=== PATIENT | male | born 1945 | race Caucasian/White ===

== ENCOUNTER 2016-08-27 11:43 | Inpatient (IN) | payer OTHER, MEDICARE ==
[~2016-08-27] VITALS: Ht 177.8 cm; Wt 80.0 kg
[2016-08-27] VITALS (8 sets, daily range): BP systolic 141–215; BP diastolic 79–111
--- NOTE | ~2016-08-27 | HC ---
[facility] [place] [place] [address] CONSULTATION Name: AMY LAWRENCE Room #: 201-P [facility] IN ..#: [id number] Admission: 08/27/16 Attend Phys: Estrada Gabriel MD Discharge: 09/05/16 Date of : 47 Report #: [id number] THIS REPORT FOR: //name// CC: Estrada Gabriel DATE OF SERVICE: 08/28/2016 PERSONAL PHYSICIAN: Estrada Gabriel MD CHIEF COMPLAINT: Left lateral ankle wound and altered mental status. HISTORY OF PRESENT ILLNESS: This is a 70-year-old white male who I have been following for several months for an ulceration on his left lateral ankle and subsequently developed osteomyelitis requiring partial fibular head removal or resection. The patient has been recently at a skilled facility with a wound VAC. We have been following the patient closely and the patient was doing well; however, over the past several days, he has developed confusion to the point of where he was brought to the Emergency Department yesterday and was admitted for further evaluation of the confusion. When I saw the patient today, the patient does not even recognize who I am and is ____ in the bed, but did not appear to be in any pain. The nurses have no major concerns about the wound at this time. DRUG ALLERGIES: LATEX, PENICILLIN, AND LEVOFLOXACIN. CURRENT MEDICATIONS: Multiple, I reviewed the patient's medication list. SOCIAL HISTORY: The patient resides at home independently prior to his recent hospitalization. Does not smoke or drink alcohol. FAMILY HISTORY: Not pertinent to current medical condition. REVIEW OF SYSTEMS: Unobtainable because of the patient's altered mental status. PHYSICAL EXAMINATION: VITAL SIGNS: The patient is afebrile. Vital signs are otherwise within normal limits. GENERAL: This is awake, but not alert or oriented white male who appears agitated and confused. HEENT: Normocephalic, atraumatic. Pupils are round. Sclerae are white. Mucous membranes are exquisitely dry. NECK: Supple, without rigidity or lymphadenopathy. There is no JVD. BACK: Nontender. LUNGS: Slightly diminished breath sounds heard throughout, but no rhonchi. CHEST: Nontender. HEART: Regular, without murmur. ABDOMEN: Soft, otherwise nontender, without organomegaly. [address] [address] CONSULTATION Name: AMY LAWRENCE Room #: 201-P [facility] IN .R.#: [id number] Admission: 08/27/16 Attend Phys: Estrada Gabriel MD Discharge: 09/05/16 Date of : 47 Report #: [id number] EXTREMITIES: The patient moves all extremities spontaneously. There is no edema in the lower extremities. Distal pulses are intact. Evaluation of left lateral ankle wound reveals a wound which is fairly clean and granulating. There is still a very small amount of posterior tibial tendon exposed. Drainage is serosanguineous. Periwound itself is otherwise intact without signs of erythema, warmth, or cellulitis. Bilateral heels are intact. NEUROLOGIC: The patient is agitated and confused which is not his normal mentation. LABORATORY DATA: White count 10.4, hemoglobin 11.9, BUN 27, creatinine 1.4. WOUND CARE COURSE: The patient while here we will hold off on placing the wound VAC, I am afraid the patient will just pull the VAC off with his confusion and agitated state. We will use Maxorb AG over the wound bed, cover this with an Optifoam and change this every 2 days. I will check a prealbumin and check the patient's underlying nutritional status to make sure we maximize his protein supplementation for healing. Medicine team is working on and found out etiology of his confusion. I appreciate the ability to consult. We will continue to follow. <ELECTRONICALLY SIGNED> By: Noble Ambriz MD 09/12/16 0826 1239 1929 Noble Ambriz MD /nt
--- NOTE | ~2016-08-27 | EKG ---
[address] [place] [address] ELECTROCARDIOGRAM REPORT Name: AMY LAWRENCE Room #: 201-P ADM IN M.R.#: [id number] Admission: 08/27/16 Attend Phys: Estrada Gabriel MD Discharge: Date of : 46 Report #: [id number] THIS REPORT FOR: //name// [facility] Test Date: 2016-08-28 Test Time: 20:33:33 Pat Name: AMY LAWRENCE Department: Room: 201 P Gender: M Scout Executive: Trish ALMEIDA : 1945 Requested By: Michaela Pedroza Order Number: [id number] MD: Peng Brown Measurements Intervals [place] Rate: 110 P: 41 AR: 146 QRS: -38 QRSD: 84 T: 2 QT: 345 QTc: 467 Interpretive Statements Sinus tachycardia Atrial premature complexes Possible inferior infarct, old Probable anteroseptal infarct, old Nonspecific ST and T wave abnormality No previous ECGs available for comparison Electronically Signed On 08-29-2016 7:54:59 VASCULAR NURSE by Peng Brown [email or web address] <ELECTRONICALLY SIGNED> By: Peng Brown MD, [facility] 08/29/16 0754 32 32 Peng Brown MD, [facility] /EPI
--- NOTE | ~2016-08-27 | HC ---
[facility] [address] [place] [address] CONSULTATION Name: AMY LAWRENCE Room #: 201-P [facility] IN ..#: [id number] Admission: 08/27/16 Attend Phys: Estrada Gabriel MD Discharge: 09/05/16 Date of : 46 Report #: [id number] THIS REPORT FOR: //name// CC: Estrada Gabriel DATE OF SERVICE: 09/05/2016 HISTORY OF PRESENT ILLNESS: The patient is a 70-year-old white male who was admitted with mental status changes. He has a history of osteomyelitis of the left fibula, status post recent partial resection. He had had placement of a wound VAC. He was seen by neurology, diagnosed with an encephalopathy, likely multifactorial. He was noted to have urinary tract infection with urosepsis, acute renal insufficiency. He also has kidney stones with hydronephrosis and diabetes mellitus. He has been treated for the osteomyelitis and has wound care involved and has been receiving IV antibiotics. His acute renal insufficiency has improved and his overall encephalopathy is improving. He still has functional mobility, ADL and cognitive deficits and we are seeing him in rehabilitation medicine consultation. There was concern regarding possible aspiration, although a swallowing study recommends mechanical soft with thin liquids. He is noted to have mild oropharyngeal dysphagia. PAST MEDICAL HISTORY: Includes diabetes mellitus, prior amputation of the right great toe more than 1 year ago, underlying hypertension, hyperlipidemia, depression. MEDICATIONS: Please see the full medication listing. SOCIAL HISTORY: , lives independently with a friend. He is a nonsmoker, nondrinker, no recreational drugs. He does have grandchildren that he is involved with. REVIEW OF SYSTEMS: No current complaints of chest pain, shortness of breath or abdominal discomfort. Some discomfort of the left leg is expected. No other focal extremity pain complaints. ALLERGIES: PENICILLIN and LATEX. FAMILY HISTORY: Noncontributory. PHYSICAL EXAMINATION: He is a 70-year-old white male in no obvious distress. Last recorded temperature 97.6, pulse 102, respirations 20, blood pressure 169/89. The patient is alert, pleasant. HEENT appeared to be benign. Cranial nerves grossly intact. There is some latency to his responses. He has a tendency to defer some answers to his roommate. Somewhat concrete with his answers. EOMs appeared full. Facies are symmetric. Functional range of motion of both upper extremities with strength graded 3+ to 4-/5. DTRs are 1. His [facility] [address] [place] [address] CONSULTATION Name: AMY LAWRENCE Jaskaran Room #: 201-P [facility] IN ..#: [id number] Admission: 08/27/16 Attend Phys: Estrada Gabriel MD Discharge: 09/05/16 Date of : 46 Report #: [id number] lower extremities, no focal calf swelling. His left lateral ankle is dressed. He appears to have weakness of that left ankle and eversion and some weakness in dorsiflexion. Eversion would be only a grade 3, dorsiflexion is probably 3+. Proximal strength is more of a grade 4-, right lower extremity strength is a 4- to 4. He is min assist with sit to stand and ambulated 46 feet min assist with a front-wheeled walker. ASSESSMENT: A 70-year-old white male with the following problem list: 1. Multifactorial encephalopathy. 2. Osteomyelitis, left fibula, continuing antibiotics. 3. Kidney stones with ureteral stone and hydronephrosis. 4. Acute renal insufficiency that has improved. 5. Diabetes mellitus. 6. Clinical evidence for diabetic neuropathy. 7. History of chronic spinal stenosis. 8. Hypertension. 9. Depression. 10. Hyperlipidemia. 11. Coronary artery disease. PLAN: The patient should be a good candidate for an acute in-hospital inpatient rehabilitation stay. From a preadmission screening perspective: 1. Prior level of function is well delineated above. 2. Expect level of improvement would be for him to become modified independent with transfers and mobility issues with a walker as well as modified independent with ADLs and improvement in cognition. 3. Evaluation of the patient's risk for clinical complications. He does have multiple medical comorbidities as noted above. 4. Condition that caused the need for rehabilitation would be the multifactorial encephalopathy. He also has diabetic peripheral neuropathy. He does have decreased distal sensation in a stalking distribution of his lower extremities that I neglected to mention in my examination above. 5. Treatments needed would include PT, OT and speech 1 hour per day each 5 days a week throughout the duration of acute inpatient rehabilitation stay. 6. Anticipated discharge destination would be back to the home setting. 7. Would anticipate home healthcare therapies. 8. The patient meets diagnostic criteria for an acute in-hospital inpatient rehabilitation stay. He meets medical necessity criteria with the multiple medical comorbidities noted above. The multiple reimbursement consultant physicians would follow with him while on the rehab liriano. He has the tolerance for an acute rehab stay and has appropriate discharge goals back to the home setting. [facility] [address] [place] [address] CONSULTATION Name: AMY LAWRENCE Room #: 201-P DIS IN M.R.#: [id number] Admission: 08/27/16 Attend Phys: Estrada Gabriel MD Discharge: 09/05/16 Date of : 46 Report #: [id number] ADDENDUM: We will ask the rn rehab staff to double check regarding his acute hospital days. <ELECTRONICALLY SIGNED> By: Edson Nolan MD 09/09/16 1623 1109 1149 Edson Nolan MD /nt
--- NOTE | ~2016-08-27 | H ---
[facility] [address] [place] [address] HISTORY AND PHYSICAL Name: AMY LAWRENCE Room #: 201-P [facility] IN M.R.#: [id number] Admission: 08/27/16 Attend Phys: Estrada Gabriel MD Discharge: 09/05/16 Date of : 46 Report #: [id number] THIS REPORT FOR: //name// CC: Estrada Gabriel DATE OF SERVICE: 08/27/2016 CHIEF COMPLAINT: Mental status changes. HISTORY OF PRESENT ILLNESS: The patient is a 70-year-old male who has been residing at [facility] after an acute care in a long-term care stay for wound of left ankle with osteomyelitis. He apparently had altered mental status starting yesterday and then fell last night and he has been more difficult to arouse in the past 24 hours. His community educator states that he has not been eating or drinking very well either. PAST MEDICAL HISTORY: Significant for: 1. Recent osteomyelitis of the left fibula, status post partial resection and wound debridement. He had a wound VAC placed just yesterday. 2. Insulin-dependent diabetes mellitus. 3. Osteoporosis. 4. Gout. 5. Recent pneumonia. 6. Depression. 7. Hypertension. 8. Chronic spinal stenosis. 9. Hyperlipidemia. 10. coronary artery disease. MEDICATIONS: Include fenofibrate 160 mg a day, Plavix 75 mg a day, gabapentin 300 mg at bedtime, allopurinol 300 mg at bedtime, glimepiride 4 mg a day, amlodipine 5 mg a day, metformin 1000 mg b.i.d., oxycodone 20 mg p.r.n., Naprosyn b.i.d., Levemir 30 units at bedtime, Flexeril 10 mg p.r.n., metoprolol 25 mg b.i.d., fentanyl patch 100 mcg q.72 hours, Janumet XR 100/1000 daily, sertraline 100 mg a day and aspirin 81 mg a day. ALLERGIES: LATEX, PENICILLIN and LEVAQUIN. SOCIAL HISTORY: No smoking and no drinking. He is . REVIEW OF SYSTEMS: Unable to obtain due to his sedated state. PHYSICAL EXAMINATION: VITAL SIGNS: Blood pressure is 171/108, pulse was 88, respiratory rate 16, he is afebrile and O2 sats 93% on room air. GENERAL: The patient is nonresponsive, although I can arouse him very [facility] [address] [place] [address] HISTORY AND PHYSICAL Name: HOWARDAMY Room #: 201-P [facility] IN M.R.#: [id number] Admission: 08/27/16 Attend Phys: Estrada Gabriel MD Discharge: 09/05/16 Date of : 46 Report #: [id number] minimally. HEENT: Mucous membranes are dry. NECK: Supple. CHEST: Clear to auscultation. CARDIOVASCULAR: Regular rhythm without murmur. ABDOMEN: Soft and nontender. Bowel sounds are active. EXTREMITIES: The left ankle shows a 3 cm well edged wound that has no drainage. It is healing nicely. Pulses are intact. DIAGNOSTIC AND LABORATORY DATA: EKG shows sinus rhythm, rate of [address] segment changes. Sodium 139, potassium 4.0, chloride 104, bicarbonate 32, BUN 30, creatinine 1.5 and glucose 197. WBC 10.8, hemoglobin 12.4, hematocrit 37.8, platelet count 328, segs 63 and lymphs 21. Urinalysis shows specific gravity of 1.025, protein 3+, ketones 1+, blood 3+, 3-10 reds, 0-5 whites and moderate bacteria. Urine culture was done. Blood cultures done. CT head showed no intracranial process. Chest x-ray shows some atelectasis. CT scan of abdomen shows bilateral renal stones with a 4 mm proximal stone on the right, no hydronephrosis. ASSESSMENT: 1. Altered mental status, most likely medication related with the addition of infection. 2. Urinary tract infection with urosepsis. 3. Urinary stone. 4. Diabetes mellitus. 5. Wound with osteomyelitis of left ankle. PLAN: 1. We will admit, consult Infectious Disease for antibiotics. Get urine culture, consult Urology. We will hold his narcotics until he becomes more arousable. We will resume his diabetic meds otherwise except for the metformin in light of his elevated creatinine. 2. Acute kidney injury most likely due to dehydration. We will hydrate. <ELECTRONICALLY SIGNED> By: Estrada Gabriel MD 09/08/16 1250 1503 1541 Estrada Gabriel MD /nt
--- NOTE | ~2016-08-27 | EEG ---
[facility] [address] [place] [address] ELECTROENCEPHALOGRAM Name: AMY LAWRENCE Room #: 201-P [facility] IN M.R.#: [id number] Admission: 08/27/16 Attend Phys: Estrada Gabriel MD Discharge: 09/05/16 Date of : 47 Report #: [id number] THIS REPORT FOR: //name// CC: Estrada Gabriel DATE OF SERVICE: 08/30/2016 REASON FOR EVALUATION: This patient is being evaluated for altered mental status. TECHNIQUE: EEG was done by placing the electrodes by standard 10-20 system of electrode placement. Both referential and sequential montages were used for recording. Background activity in this patient's EEG is about 7-8 Hz and 30-40 microvolts. This background activity is intermixed with theta range slowing on both sides. The patient went to sleep that is associated with bilaterally symmetrical sleep spindle and vertex sharp waves. However, even when the patient is awake, the slowing is present on both sides. Throughout the record, no active epileptiform activity was noticed. IMPRESSION: This patient's electroencephalogram is intermixed with theta range slowing on both sides. That is a nonspecific abnormality, which can occur with dementia, encephalopathy, effect of psychotropic medication, etc. Clinical correlation is recommended. Thank you very much for this referral. <ELECTRONICALLY SIGNED> By: Vinny Douglas MD 09/05/16 1843 1317 11 MD michelle Poon
--- NOTE | ~2016-08-27 | EKG ---
[facility] [place] [address] ELECTROCARDIOGRAM REPORT Name: AMY LAWRENCE [id number] Admission: 08/27/16 Attend Phys: Discharge: Date of : 47 Report #: [id number] THIS REPORT FOR: //name// [facility] ED Test Date: 2016-08-27 Test Time: 12:27:16 Pat Name: AMY LAWRENCE Department: Room: Gender: Clinical Genetics Laboratory Chief: NEERAJ : 1945 Requested By: Charleen Malin Order Number: [id number] MD: Peng Brown Measurements Intervals [place] Rate: 82 P: 19 OK: 148 QRS: -34 QRSD: 84 T: 13 QT: 422 QTc: 493 Interpretive Statements Sinus rhythm Left axis deviation Poor R-wave progression Baseline wander in lead(s) V6 No previous ECG available for comparison Electronically Signed On 08-27-2016 13:29:57 [facility] by Peng Brown [email or web address] <ELECTRONICALLY SIGNED> By: Peng Brown MD, [facility] 08/27/16 1329 1227 1227 Peng Brown MD, [facility] /EPI
--- NOTE | ~2016-08-27 | HC ---
[facility] [address] [place] [address] CONSULTATION Name: AMY LAWRENCE Room #: 201-P [facility] IN ..#: [id number] Admission: 08/27/16 Attend Phys: Estrada Gabriel MD Discharge: 09/05/16 Date of : 47 Report #: [id number] THIS REPORT FOR: //name// CC: Estrada Gabriel DATE OF SERVICE: 08/31/2016 REASON FOR CONSULTATION: Elevating creatinine. HISTORY OF PRESENT ILLNESS: This very ill and unfortunate patient has diabetes, had a very severe left ankle diabetic foot infection with osteomyelitis of the fibula, and was under treatment for that in June-July of last year. He then was in a rehab LTAC facility, developed worsening mental status after five weeks of cefepime, came here 4 days ago and was admitted. His creatinine was 1.9 from a baseline a little bit lower than that, went down and now is up to 2.4. He has importantly been n.p.o. and not been able to take anything in by mouth. He has had very high blood sugars with likely glycosuria. He did have a CT scan, which showed reasonably normal looking kidneys without hydronephrosis. He did have a ureteral stone, which apparently passed. He does have a couple of kidney stones but no hydronephrosis. PAST MEDICAL HISTORY: He has longstanding diabetes, poorly controlled, and he has not taken good care of himself. He also has had a history of hypertension. He has had amputation of the right great toe last year and has had depression as well. ALLERGIES: Reportedly PENICILLIN and LATEX. SOCIAL HISTORY: He is , lives by himself, currently no use of recreational drugs, cigarettes or alcohol. REVIEW OF SYSTEMS: Difficult to take as his mental status is rather flat and diminished. GENERAL: He does present a poor appearance. EYES: Eyes sight seems to be okay. EARS, NOSE AND THROAT: Hearing okay, but apparently has some trouble with swallowing. No mouth ulcers. ENDOCRINE: Positive for the diabetes. RESPIRATORY: Currently not short winded. CARDIAC: No chest pain, angina or arrhythmias. GASTROINTESTINAL: He is n.p.o. due to aspirin risk. GENITOURINARY: He has a Cardoza catheter in place. NEUROLOGIC: Extremely diffusely weak. Mental status is rather limited. PHYSICAL EXAMINATION: GENERAL: This is an ill-appearing gentleman, mumbles softly, unclear as to how [facility] [address] [place] [address] CONSULTATION Name: AMY LAWRENCE Room #: 201-P DIS IN M.R.#: [id number] Admission: 08/27/16 Attend Phys: Estrada Gabriel MD Discharge: 09/05/16 Date of : 47 Report #: [id number] oriented he really is. SKIN: Shows poor turgor. SKELETAL: Well developed and well nourished, but somewhat emaciated. HEENT: Extraocular movements appear to be full. No scleral icterus. Hearing and vision appear to be intact. Mucous membranes are dry. NECK: The neck veins are flat. CHEST: Clear. HEART: Regular. . ABDOMEN: Soft. EXTREMITIES: There is no edema. Dressing over the left ankle. LABORATORY DATA: Hemoglobin 11.9, sodium 148, potassium 3.3, chloride 109, bicarbonate 18, creatinine 2.4 and BUN 51. ASSESSMENT AND PLAN: 1. Increased creatinine. He may have some underlying chronic kidney disease. He appears to have some proteinuria, but now he is getting worse. I believe he is volume depleted. He has had poor intake. He does have high sugar. We will try some half normal. We may have to add some bicarbonate to the mix as well, as his bicarbonate was down to 18. He does have a catheter, so apparently bladder function is not going to be an issue here. 2. Nephrolithiasis. 3. Left ankle wound. 4. Decreased mental status. 5. Diabetes mellitus with apparent nephropathy. 6. Hypertension. I will add some clonidine. <ELECTRONICALLY SIGNED> By: Bruce Aguilar MD 09/11/16 1127 1134 1728 Bruce Aguilar MD /nt
--- NOTE | ~2016-08-27 | HC ---
[facility] [address] [place] [address] CONSULTATION Name: AMY LAWRENCE Room #: 201-P [facility] IN ..#: [id number] Admission: 08/27/16 Attend Phys: Estrada Gabriel MD Discharge: Date of : 47 Report #: [id number] THIS REPORT FOR: //name// CC: Sung Gabriel HISTORY OF PRESENT ILLNESS: The patient is a 70-year-old male who I have been asked to see for heme positive dark stool, who presented with increasing mental confusion which began approximately 7-10 days ago. He has had recent medical history complicated by osteomyelitis and surgery, status post left fibula, partial resection and wound debridement as well as a wound VAC. He has had a history of increasing delirium and altered mental status and increased somnolence. HOME MEDICATIONS: Include fenofibrate, Plavix, gabapentin, allopurinol, glimepiride, amlodipine, metformin, oxycodone, Naprosyn, Levemir, Flexeril, metoprolol, fentanyl patch, Janumet, sertraline and aspirin. ALLERGIES: LATEX, PENICILLIN and LEVAQUIN. SOCIAL HISTORY: He is and has a roommate who I just talked with today. REVIEW OF SYSTEMS: Not possible secondary to the patient's mental status. PAST MEDICAL HISTORY: Otherwise notable for insulin-dependent diabetes, osteoporosis, gout, pneumonia, depression, hypertension, spinal stenosis, hyperlipidemia and coronary artery disease. PHYSICAL EXAMINATION: MENTAL STATUS: The patient is unable to give any history and is disoriented. GENERAL: The patient is afebrile. VITAL SIGNS: Stable. HEENT: Nonicteric. NECK: No JVD, thyromegaly or bruits. CARDIOVASCULAR: Not performed. PULMONARY: Not performed. ABDOMEN: Soft, nondistended and nontender. No stigmata of chronic liver disease. No abnormal masses or bruits. EXTREMITIES: No clubbing, cyanosis or edema. NEUROLOGIC: Not performed. LABORATORY DATA: Pertinent labs include hemoglobin 12.4, platelet count 328 and white count 10.8. His repeat hemoglobin is 11.9. Serum chemistry notable for a sodium of 150, potassium 3.5, chloride 110, venous bicarbonate 16, BUN 43 and creatinine 2.3. His liver tests are normal. ASSESSMENT: In summary, the patient has suspected heme positive stool and mild [facility] [address] [place] [address] CONSULTATION Name: AMY LAWRENCE Jaskaran Room #: 201-P [facility] M.R.#: [id number] Admission: 08/27/16 Attend Phys: Estrada Gabriel MD Discharge: Date of : 47 Report #: [id number] anemia. He has no significant abnormality on physical examination. He does not have a history of significant alcohol consumption or abuse. He has been on significant pain medications and may be experiencing withdrawal in some regard from these. Mental status workup is also being entertained currently and is likely multifactorial. I see no evidence of acute gastrointestinal hemorrhage, but we will follow with him. He has had an EGD and a colonoscopy in the last couple of years by Dr. Gramajo. The results of these are not available to me. Thank you again for allowing us to participate in the care of this nice man. Sincerely, <ELECTRONICALLY SIGNED> By: Zheng Sanders MD 09/01/16 1539 [id number] [id number] Giorgio Thibodeaux MD /nt
[~2016-08-27 11:43] MED LIST: ALLOPURINOL 30300 M1 PO; ALTACE10 M1 PO; ALTACE10 MG PO; AMARYL4 MG PO; ASPIR 8181 MG PO; AVANDIA8 MG PO; COMPAZINE10 MG PO; FENOFIBRATE160 MG PO; FENTANYL 1100 MCG/HR TRANSDERM; FLEXERIL PO; GLUCOPHAGE PO; GLUCOPHAGE XR500 MG PO; JANUMET XR 1001 EACH PO; LACTULOSE10 GM/15 M PO; LEVAQUIN 500 M500 M2 PO; LEVEMIR100 UNIT/1 SUBQ; LEVOFLOXAC750 MG/150 IV; LEVSIN; LOPRESSOR PO; LOPRESSOR25 PO; METFORMIN HCL500 MG PO; NAPROSYN250 MG PO; NAPROSYN500 MG PO; NORVASC 5 MG TAB5 MG PO; NORVASC5 MG PO; NOVOLOG100 UNIT/1 SUBQ; OXYCODONE HCL20 M1 PO; PERCOCET 5-3251 EACH PO; PLAVIX 75 MG TA75 M1 PO; VICODIN; ZOLOFT50 MG PO
[2016-08-27] MEDS ORDERED: NEURONTIN 300300 M1 PO (12:07)
[2016-08-27 12:11] LABS: ABSOLUTE NEUTROPHILS 6.8 thou/uL (1.4-8.2); BASOPHILS 0.5 % (0.0-2.0); EOSINOPHILS 6.4 % (0.0-3.0); HEMATOCRIT 37.8 % (42.0-52.0); HEMOGLOBIN 12.4 gm/dL (14.0-18.0); LYMPHOCYTES 20.9 % (24.0-44.0); MCH 25.4 pg (26.0-34.0); MCHC 32.9 % (28.0-37.0); MCV 77.1 fL (80.0-100.0); MONOCYTES 8.9 % (1.0-8.0); PLATELET COUNT 328 thou/uL (150-400); POLYS 63.3 % (36.0-66.0); RDW 16.5 % (10.5-14.5); WBC 10.8 thou/uL (4.0-11.0)
[2016-08-27 12:13] LABS: MANUAL DIFF NO
[2016-08-27 12:18] LABS: CALCIUM 9.1 mg/dL (8.5-10.1); CREATININE 1.5 mg/dL (0.6-1.3)
[2016-08-27 13:25] LABS: URINE BILIRUBIN NEGATIVE (Negative); URINE BLOOD 3+ (Negative); URINE COLOR YELLOW; URINE GLUCOSE-RANDOM* 2+ (Negative); URINE KETONES 1+ (Negative); URINE LEUKOCYTES-REFLEX NEGATIVE (Negative); URINE PROTEIN (DIPSTICK) 3+ (Negative); URINE SPECIFIC GRAVITY 1.025 (1.003-1.035); URINE UROBILINOGEN 0.2 E.U./dl (0.2-1.0)
[2016-08-27 13:31] LABS: CASTS None Seen /LPF (None Seen); SQUAMOUS None Seen /LPF (0-3); URINE RBC 3-10 Few /HPF (0-2); URINE WBC-REFLEX 0-5 Rare /HPF (0-5)
[2016-08-27 13:32] LABS: AMORPHOUS URATES Moderate /LPF (None Seen)
[2016-08-28] VITALS (9 sets, daily range): BP systolic 185–220; BP diastolic 106–145
[2016-08-28 03:23] LABS: HEMATOCRIT 37.5 % (42.0-52.0); HEMOGLOBIN 11.9 gm/dL (14.0-18.0); MCH 25.3 pg (26.0-34.0); MCHC 31.7 % (28.0-37.0); MCV 79.7 fL (80.0-100.0); PLATELET COUNT 326 thou/uL (150-400); RDW 16.3 % (10.5-14.5); WBC 10.4 thou/uL (4.0-11.0)
[2016-08-28 03:47] LABS: MANUAL DIFF YES
[2016-08-28 03:50] LABS: CALCIUM 8.2 mg/dL (8.5-10.1); CREATININE 1.4 mg/dL (0.6-1.3); POTASSIUM 3.7 mmol/L (3.5-5.1)
[2016-08-28 05:48] LABS: ABSOLUTE NEUTROPHILS 7.3 thou/uL (1.4-8.2); ANISOCYTOSIS 1+; LARGE PLATELETS RARE; MICROCYTES 2+; TOTAL CELL COUNT 100
[2016-08-29] VITALS (8 sets, daily range): BP systolic 165–199; BP diastolic 103–122
[2016-08-29 04:52] LABS: CREATININE 1.9 mg/dL (0.6-1.3); POTASSIUM 3.6 mmol/L (3.5-5.1)
[2016-08-30] VITALS (7 sets, daily range): BP systolic 145–176; BP diastolic 85–103
[2016-08-30 00:11] LABS: FREE T4 1.05 ng/dL (0.82-1.77); TSH 0.446 uIU/mL (0.450-4.500)
[2016-08-30 01:07] LABS: FOLIC ACID 14.7 ng/mL (>3.0)
[2016-08-30 06:54] LABS: ALBUMIN 2.6 g/dL (3.4-5.0); CREATININE 2.3 mg/dL (0.6-1.3); MAGNESIUM 1.6 mg/dL (1.8-2.4); POTASSIUM 3.5 mmol/L (3.5-5.1); TOTAL BILIRUBIN 0.4 mg/dL (<0.1-1.0); TOTAL PROTEIN 7.2 g/dL (6.4-8.2)
[2016-08-31 03:27] VITALS: BP 178/117
[2016-08-31 07:30] VITALS: BP 180/110
[2016-08-31 09:36] LABS: CALCIUM 8.7 mg/dL (8.5-10.1); CREATININE 2.4 mg/dL (0.6-1.3); POTASSIUM 3.3 mmol/L (3.5-5.1)
[2016-08-31 12:00] VITALS: BP 160/95
[2016-08-31 16:30] VITALS: BP 168/113
[2016-08-31 23:19] VITALS: BP 172/106
[2016-09-01 03:15] VITALS: BP 194/111
[2016-09-01 04:12] LABS: HEMATOCRIT 39.4 % (42.0-52.0); HEMOGLOBIN 12.4 gm/dL (14.0-18.0); MCH 24.8 pg (26.0-34.0); MCHC 31.6 % (28.0-37.0); MCV 78.6 fL (80.0-100.0); RBC 5.02 mil/uL (4.50-6.00); RDW 16.9 % (10.5-14.5); WBC 16.4 thou/uL (4.0-11.0)
[2016-09-01 04:25] LABS: ALBUMIN 2.4 g/dL (3.4-5.0); CALCIUM 8.4 mg/dL (8.5-10.1); PHOSPHORUS 3.4 mg/dL (2.5-4.9)
[2016-09-01 05:10] VITALS: BP 168/110
[2016-09-01 09:09] VITALS: BP 180/110
[2016-09-01 10:08] LABS: URINE CREATININE-RANDOM* 36.2 mg/dL (Not Estab.); URINE PROTEIN-RANDOM* 267.9 mg/dL (Not Estab.)
[2016-09-01 11:51] VITALS: BP 191/118
[2016-09-01 14:10] LABS: KAPPA FREE LIGHT CHAINS 36.96 mg/L (3.30-19.40); KAPPA/LAMBDA RATIO 1.45 (0.26-1.65); LAMBDA FREE LIGHT CHAINS 25.56 mg/L (5.71-26.30)
[2016-09-02 04:18] VITALS: BP 120/58; BP 168/98
[2016-09-02 05:27] LABS: ALBUMIN 2.2 g/dL (3.4-5.0); CALCIUM 8.1 mg/dL (8.5-10.1); CREATININE 1.7 mg/dL (0.6-1.3); PHOSPHORUS 3.3 mg/dL (2.5-4.9); POTASSIUM 3.2 mmol/L (3.5-5.1)
[2016-09-02 07:25] VITALS: BP 177/105
[2016-09-02 11:14] VITALS: BP 152/75
[2016-09-02 15:06] LABS: A/G RATIO 0.9 (0.7-1.7); ALBUMIN 2.8 g/dL (2.9-4.4); ALPHA 1 0.3 g/dL (0.0-0.4); BETA 1.1 g/dL (0.7-1.3); GAMMA 0.7 g/dL (0.4-1.8); M-SPIKE Not Observed g/dL (Not Observed)
[2016-09-02 15:28] VITALS: BP 158/102
[2016-09-02 19:06] VITALS: BP 150/95
[2016-09-03 03:20] VITALS: BP 157/109
[2016-09-03 05:00] VITALS: BP 138/68
[2016-09-03 06:20] LABS: ALBUMIN 2.1 g/dL (3.4-5.0); CALCIUM 7.8 mg/dL (8.5-10.1); CREATININE 1.6 mg/dL (0.6-1.3); PHOSPHORUS 3.1 mg/dL (2.5-4.9); POTASSIUM 3.6 mmol/L (3.5-5.1)
[2016-09-03 07:35] VITALS: BP 179/110
[2016-09-03 11:45] VITALS: BP 160/97
[2016-09-03 16:20] VITALS: BP 141/93
[2016-09-03 19:35] VITALS: BP 134/91
[2016-09-04 03:40] VITALS: BP 178/104
[2016-09-04 07:40] VITALS: BP 174/98
[2016-09-04 08:37] LABS: CALCIUM 7.8 mg/dL (8.5-10.1); CREATININE 1.5 mg/dL (0.6-1.3); POTASSIUM 3.6 mmol/L (3.5-5.1)
[2016-09-04 11:15] VITALS: BP 144/73
[2016-09-04 16:35] VITALS: BP 144/93
[2016-09-04 21:32] VITALS: BP 161/101
[2016-09-05 00:34] VITALS: BP 146/101
[2016-09-05 03:55] VITALS: BP 181/109
[2016-09-05 04:40] LABS: CALCIUM 7.8 mg/dL (8.5-10.1); CREATININE 1.5 mg/dL (0.6-1.3); PHOSPHORUS 3.6 mg/dL (2.5-4.9); POTASSIUM 3.3 mmol/L (3.5-5.1)
[2016-09-05 05:16] VITALS: BP 159/105
[2016-09-05 07:10] VITALS: BP 169/89
[2016-09-05 11:55] VITALS: BP 160/94
[2016-09-05] MEDS ORDERED: CIPRO500 MG PO (12:40)
[2016-09-17] MEDS ORDERED: CIPRO500 MG PO (12:15)
[2016-10-23] MEDS ORDERED: METOPROLOL TART25 MG PO (09:44)
[2016-10-23] MEDS ORDERED: JANUMET XR 1001 EACH PO (10:24)
[2016-10-23] MEDS ORDERED: NORVASC5 MG PO (10:25)
[2016-10-23] MEDS ORDERED: ALTACE10 MG PO (10:25)
[2016-10-23] MEDS ORDERED: ZOFRAN8 MG PO (10:28)
[2016-10-23] MEDS ORDERED: ZOLPIDEM TARTRA10 MG PO (10:29)
[2016-10-27] MEDS ORDERED: PANTOPRAZOLE SO40 M1 PO (13:21)
[2016-10-27] MEDS ORDERED: CARAFATE 1 GM TA1 G1 PO (13:21)
== END 2016-09-05 16:21 | DRG 871 ==
LOC: ER 11:43 → EROBS 14:30 → 2N 14:30
PROVIDERS: Emergency Medicine; Family Medicine; Hospitalist; Internal Medicine; Internal Medicine Infectious Disease; Internal Medicine Nephrology; Psychiatry & Neurology Neurology; Specialist
DX: A41.9 Sepsis, unspecified organism (principal); G93.40 Encephalopathy, unspecified; G92 Toxic encephalopathy; N39.0 Urinary tract infection, site not specified; M86.8X7 Other osteomyelitis, ankle and foot; N13.2 Hydronephrosis with renal and ureteral calculous obstruction; L97.329 Non-pressure chronic ulcer of left ankle with unspecified severity; E87.0 Hyperosmolality and hypernatremia; E87.2 Acidosis; N17.9 Acute kidney failure, unspecified; E11.69 Type 2 diabetes mellitus with other specified complication; E11.621 Type 2 diabetes mellitus with foot ulcer; B96.5 Pseudomonas (aeruginosa) (mallei) (pseudomallei) as the cause of diseases classified elsewhere; I10 Essential (primary) hypertension; G89.29 Other chronic pain; M81.0 Age-related osteoporosis without current pathological fracture; M10.9 Gout, unspecified; F32.9 Major depressive disorder, single episode, unspecified; M48.00 Spinal stenosis, site unspecified; E78.5 Hyperlipidemia, unspecified; I25.10 Atherosclerotic heart disease of native coronary artery without angina pectoris; S91.002A Unspecified open wound, left ankle, initial encounter; E11.51 Type 2 diabetes mellitus with diabetic peripheral angiopathy without gangrene; M54.9 Dorsalgia, unspecified; E11.21 Type 2 diabetes mellitus with diabetic nephropathy; X58.XXXA Exposure to other specified factors, initial encounter; E11.40 Type 2 diabetes mellitus with diabetic neuropathy, unspecified; F03.90 Unspecified dementia, unspecified severity, without behavioral disturbance, psychotic disturbance, mood disturbance, and anxiety; R33.9 Retention of urine, unspecified; E87.6 Hypokalemia; Z79.4 Long term (current) use of insulin; Z79.899 Other long term (current) drug therapy; Z90.49 Acquired absence of other specified parts of digestive tract; Z88.0 Allergy status to penicillin; Z88.1 Allergy status to other antibiotic agents; Z79.82 Long term (current) use of aspirin; Z91.040 Latex allergy status; Z89.411 Acquired absence of right great toe
CPT/HCPCS: 10081

== ENCOUNTER → 2016-11-04 | Outpatient (CLI) | payer OTHER, MEDICARE ==
[~2016-11-04] MED LIST changes: +CARAFATE 1 GM TA1 G1 PO; +CIPRO500 MG PO; +METOPROLOL TART25 MG PO; +NEURONTIN 300300 M1 PO; +PANTOPRAZOLE SO40 M1 PO; +ZOFRAN8 MG PO; +ZOLPIDEM TARTRA10 MG PO
--- NOTE | ~2016-11-04 | HC ---
[facility] [address] [place] [address] CONSULTATION Name: AMY LAWRENCE Room #: PRE [facility]#: [id number] Admission: Attend Phys: Noble Ambriz MD Discharge: Date of : 47 Report #: [id number] THIS REPORT FOR: //name// CC: Estrada Ambriz DATE OF SERVICE: 10/27/2016 PERSONAL PHYSICIAN: Estrada Gabriel MD CHIEF COMPLAINT: Bilateral ankle ulcerations. HISTORY OF PRESENT ILLNESS: This is a pleasant white male who is going to be discharged today to home with home health, who has been hospitalized for a recent GI bleed and acute anemia. We have been following the patient for the past several months for ulcerations on bilateral ankles. The patient feels that he is doing quite well. The patient states that his ankles give him minimal pain. The patient denies any other associated wound care concerns at this time. PAST MEDICAL HISTORY: Once again for recent GI bleed and hyperkalemia. CURRENT MEDICATIONS: Multiple, I reviewed the patient's medication list. DRUG ALLERGIES: LATEX, PENICILLIN AND LEVAQUIN. PHYSICAL EXAMINATION: VITAL SIGNS: Stable. The patient is afebrile. GENERAL: This is an alert and oriented x 3, chronically ill appearing white male who is in no acute distress. HEENT: Normocephalic, atraumatic. Mucous membranes are somewhat dry. Pupils are round. Sclerae white. LUNGS: Clear. HEART: Regular. ABDOMEN: Soft, nontender. EXTREMITIES: The patient moves all extremities without difficult. The patient has trace edema in the lower extremities. Distal pulses are intact. Evaluation of left lateral ankle ulceration reveals ulceration to be fairly clean and granulating. There is still a small amount of exposed tendon, which is not new. There is serosanguineous drainage without odor. Ulcers are otherwise intact without signs of erythema, warmth or cellulitis. Distal heel, foot and toes were all without any other ulcerations. Evaluation of right lateral ankle reveals a dry and intact eschar which is coated with Betadine without signs of any drainage or erythema, warmth or signs of cellulitis. NEUROLOGIC: Cranial nerves 2-12 are grossly intact. Motor and sensory grossly intact. [address] [address] CONSULTATION Name: HOWARDAMY Room #: [facility].#: [id number] Admission: Attend Phys: Noble Ambriz MD Discharge: Date of : 47 Report #: [id number] LABORATORY DATA: White count 7.2, hemoglobin 11.2, albumin low at 2.3. IMPRESSION: 1. Chronic ulceration, left lateral malleolus, status post partial resection of left fibular head secondary to underlying osteomyelitis. Overall improving. 2. Chronic ulceration, right lateral ankle, unstageable with eschar intact. 3. Peripheral arterial disease status post bilateral lower extremity stent placement. 4. Diabetes mellitus. 5. Severe protein calorie malnutrition with albumin of 2.3. 6. History of gastrointestinal bleed. 7. Generalized debility. PLAN: At this time, the patient will be discharged to home with home health nurses to come in. We will continue with silver alginate to the left lateral ankle ulceration, changed Thursday, Thursday and Thursday. The right lateral ankle ulcer will be changed daily with Betadine. The patient will make an appointment to see me within the next 2 weeks. The patient to maximize his oral protein supplementation at home for healing purposes. The patient will have physical and occupational therapy come in and see the patient for strengthening via the home health nurses. We will continue to follow him as an outpatient. <ELECTRONICALLY SIGNED> By: Noble Ambriz MD 10/30/16 1005 [id number] [id number] Noble Ambriz MD /nt
--- NOTE | ~2016-11-04 | H ---
[facility] [address] [place] [address] HISTORY AND PHYSICAL Name: AMY LAWRENCE Room #: PRE [facility].#: [id number] Admission: Attend Phys: Noble Ambriz MD Discharge: Date of : 47 Report #: [id number] THIS REPORT FOR: //name// CC: Estrada Ambriz DATE OF SERVICE: 10/23/2016 This is a new hospital visit on established patient. HISTORY OF PRESENT ILLNESS: This is a 71-year-old white male, well known to me from both outpatient and inpatient wound care, for recent osteomyelitis of a chronic ulceration on his left lateral ankle. The patient most recently had been discharged from a skilled unit after receiving several weeks of IV antibiotics and was noted, approximately 3 weeks ago, to have ulcerations started on his right lateral ankle as well. We reviewed the patient's most previous arterial ultrasound, which showed significant stenosis and occlusion in the vessels on his right leg. The patient underwent angiography approximately 10 days ago and had a stent placed in the right lower extremity. The patient, however, over the past couple of days, supposedly had not been feeling well and feeling extremely weak and then came to the emergency department with a hemoglobin of 3.4 and potassium of 6.8. The patient was emergency treated for that with transfusions and appropriate treatment for hyperkalemia. The patient is on the ICU and we have been asked to follow has ulcerations at this time. The patient denies any pain in the ulcerations. The patient denies any other associated complaints, except for severe weakness. PAST MEDICAL HISTORY: Significant for osteomyelitis of the great toe, status post amputation and history of osteomyelitis of the left distal fibula, status post resection. History of hypertension, insulin-dependent diabetes, chronic back pain with a spinal cord stimulator, depression and peripheral arterial disease. CURRENT MEDICATIONS: Multiple. I reviewed the patient's medication list and that included Plavix, which has been held at this time. DRUG ALLERGIES: LATEX, PENICILLIN and LEVAQUIN. SOCIAL HISTORY: The patient does not smoke or drink. Lives independently. FAMILY HISTORY: Not pertinent to current medical situation. REVIEW OF SYSTEMS: CONSTITUTIONAL: The patient denies fevers or chills. NEUROLOGIC: The patient has overall generalized weakness, but no isolated weakness in the arms or legs. [address] [address] HISTORY AND PHYSICAL Name: AMY LAWRENCE Room #: PRE [facility]#: [id number] Admission: Attend Phys: Noble Ambriz MD Discharge: Date of : 47 Report #: [id number] EYES: No complaints. ENT: No complaints. CARDIAC: The patient denies any chest pain, palpitations or peripheral edema. RESPIRATORY: The patient denies any shortness breath, cough or wheezes. GASTROINTESTINAL: The patient denies any nausea, vomiting, diarrhea, hematochezia or melena. GENITOURINARY: The patient denies any urgency or frequency or hematuria. MUSCULOSKELETAL: No complaints. SKIN: There are ulcerations on his left lateral ankle and right lateral ankle. PHYSICAL EXAMINATION: VITAL SIGNS: Stable. The patient is afebrile. GENERAL: This is an alert and oriented times 3, chronically ill-appearing white male, who is in no obvious distress. HEENT: Normocephalic, atraumatic. Extraocular movements are dry. Pupils are round. Sclerae are white. NECK: Without JVD. It is supple. LUNGS: Clear. HEART: Regular. ABDOMEN: Soft, nontender. EXTREMITIES: The patient moves all extremities without difficulty. Bilateral heels are intact. Evaluation of the left lateral ankle reveals there is an ulceration which is a mix of approximately 80% granulation and 20% slough. There is still a small amount of exposed peroneal tendon, which has been present the entire time. The ricardo-ulcer itself is otherwise intact, without erythema or warmth. Evaluation of the rest of the left foot and toes is all intact. There is noted left great toe amputation. On the right foot and heel are with an ulceration on the right lateral ankle. There is a dry and intact eschar, without signs of infection. NEUROLOGIC: Cranial nerves 2-12 are grossly intact. Motor and sensory grossly intact. GENITOURINARY: Sacrococcygeal and gluteal area, all without open ulcerations or signs of pressure changes. LABORATORY DATA: White count 12.1, hemoglobin 5.8. On admission, once again, the patient's potassium was elevated at 6.8. The patient is now down to 5.4. Albumin is low at 2.6. IMPRESSION: 1. Chronic ulceration of the left lateral ankle, consistent with arterial/diabetic ulceration with underlying osteomyelitis, status post partial resection of the distal fibular head. 2. Chronic ulceration - diabetic/arterial, on the right lateral ankle with dry eschar. 3. Severe anemia secondary to gastrointestinal bleed. 4. Severe protein-calorie malnutrition with albumin of 2.8. [facility] [address] [place] [address] HISTORY AND PHYSICAL Name: AMY LAWRENCE Room #: PRE [facility]#: [id number] Admission: Attend Phys: Noble Ambriz MD Discharge: Date of : 47 Report #: [id number] 5. Diabetes mellitus type 2, with insulin requiring. 6. Peripheral arterial disease, status post bilateral stents in the lower extremities. PLAN: At this time, we will use Maxorb AG over the left lateral ankle ulcer and cover this with Optifoam. Dressing changes Thursday, Thursday and Thursday. On the right lateral ankle, we will use Betadine daily to keep this eschar dry. I will maximize the patient's protein supplementation for healing. I will have the patient turned every 2 hours to offload his sacrococcygeal area. We will continue to follow the patient. I appreciate the ability to consult. <ELECTRONICALLY SIGNED> By: Noble Ambriz MD 10/30/16 1005 [id number] 1037 Noble Ambriz MD /nt
== END ==
LOC: HYPER 10-23 15:24
DX: E11.622 Type 2 diabetes mellitus with other skin ulcer (principal); L97.311 Non-pressure chronic ulcer of right ankle limited to breakdown of skin; L97.322 Non-pressure chronic ulcer of left ankle with fat layer exposed; I70.248 Atherosclerosis of native arteries of left leg with ulceration of other part of lower leg; I10 Essential (primary) hypertension

== ENCOUNTER → 2016-11-20 | Outpatient (CLI) | payer OTHER, MEDICARE | LOC: HYPER 07:11 | DX: E11.622 Type 2 diabetes mellitus with other skin ulcer (principal); I70.248 Atherosclerosis of native arteries of left leg with ulceration of other part of lower leg; L97.321 Non-pressure chronic ulcer of left ankle limited to breakdown of skin; L97.311 Non-pressure chronic ulcer of right ankle limited to breakdown of skin; I10 Essential (primary) hypertension ==

== ENCOUNTER → 2016-12-04 | Outpatient (CLI) | payer OTHER, MEDICARE | LOC: HYPER 07:14 | DX: E11.622 Type 2 diabetes mellitus with other skin ulcer (principal); L97.311 Non-pressure chronic ulcer of right ankle limited to breakdown of skin; I70.248 Atherosclerosis of native arteries of left leg with ulceration of other part of lower leg; L97.321 Non-pressure chronic ulcer of left ankle limited to breakdown of skin; I10 Essential (primary) hypertension; M10.9 Gout, unspecified ==

== ENCOUNTER → 2016-12-18 | Outpatient (CLI) | payer OTHER, MEDICARE | LOC: HYPER 07:01 | DX: E11.622 Type 2 diabetes mellitus with other skin ulcer (principal); L97.311 Non-pressure chronic ulcer of right ankle limited to breakdown of skin; L97.321 Non-pressure chronic ulcer of left ankle limited to breakdown of skin; I70.248 Atherosclerosis of native arteries of left leg with ulceration of other part of lower leg; I10 Essential (primary) hypertension; M10.9 Gout, unspecified; Z89.411 Acquired absence of right great toe ==

== ENCOUNTER → 2017-01-01 | Outpatient (CLI) | payer OTHER, MEDICARE | LOC: HYPER 07:18 | DX: E11.622 Type 2 diabetes mellitus with other skin ulcer (principal); L97.322 Non-pressure chronic ulcer of left ankle with fat layer exposed; L97.311 Non-pressure chronic ulcer of right ankle limited to breakdown of skin; I70.248 Atherosclerosis of native arteries of left leg with ulceration of other part of lower leg; I10 Essential (primary) hypertension; M81.0 Age-related osteoporosis without current pathological fracture; M10.9 Gout, unspecified; Z89.411 Acquired absence of right great toe ==

== ENCOUNTER → 2017-01-21 | Outpatient (CLI) | payer OTHER, MEDICARE | LOC: HYPER 07:10 | DX: E11.622 Type 2 diabetes mellitus with other skin ulcer (principal); L97.322 Non-pressure chronic ulcer of left ankle with fat layer exposed; I70.248 Atherosclerosis of native arteries of left leg with ulceration of other part of lower leg; L97.311 Non-pressure chronic ulcer of right ankle limited to breakdown of skin; I10 Essential (primary) hypertension; M81.0 Age-related osteoporosis without current pathological fracture ==

== ENCOUNTER → 2017-02-04 | Outpatient (CLI) | payer OTHER, MEDICARE | LOC: HYPER 07:05 | DX: I70.243 Atherosclerosis of native arteries of left leg with ulceration of ankle (principal); L97.322 Non-pressure chronic ulcer of left ankle with fat layer exposed; E11.622 Type 2 diabetes mellitus with other skin ulcer; I10 Essential (primary) hypertension; M81.0 Age-related osteoporosis without current pathological fracture; Z89.411 Acquired absence of right great toe ==

== ENCOUNTER → 2017-02-25 | Outpatient (CLI) | payer OTHER, MEDICARE | LOC: HYPER 06:57 | DX: E11.622 Type 2 diabetes mellitus with other skin ulcer (principal); L97.322 Non-pressure chronic ulcer of left ankle with fat layer exposed; I70.243 Atherosclerosis of native arteries of left leg with ulceration of ankle; L97.311 Non-pressure chronic ulcer of right ankle limited to breakdown of skin; I10 Essential (primary) hypertension; G89.29 Other chronic pain; M81.0 Age-related osteoporosis without current pathological fracture ==